=== PATIENT | male | born 1965 | race African-American/Black ===

== ENCOUNTER 2017-09-23 16:05 | Emergency (ER) | payer SELFPAY | END 2017-09-23 17:14 | disposition home or self-care (01) | LOC: ERS 16:05 | DX: K64.4 Residual hemorrhoidal skin tags (principal); I10 Essential (primary) hypertension; F17.210 Nicotine dependence, cigarettes, uncomplicated; Z79.899 Other long term (current) drug therapy | CPT/HCPCS: 99406 ==

== ENCOUNTER 2018-07-27 11:17 | Inpatient (IN) | payer SELFPAY ==
[2018-07-27 12:50] LABS: #Basophils 0.1 thou/uL (0.0-0.2); #Eosinphils 0.6 thou/uL (0.0-0.7); #Lymphocytes 4.1 thou/uL (1.20-3.40); #Monocytes 1.1 thou/uL (0.11-0.59); %Basophils 0.6 % (0.0-1.0); %Eosinophils 3.4 % (0.0-10.0); %Lymphocytes 24.1 % (21.0-51.0); %Monocytes 6.5 % (0.0-10.0); %Neutrophils 65.3 % (42.0-75.0); Hemoglobin 15.4 g/dL (14.0-18.0); Mean Corpuscular HGB CONC 33.8 g/dL (32.0-36.0); Mean Corpuscular Hemoglobin 29.9 pg (27.0-31.0); Mean Corpuscular Volume 88.5 fL (78.0-98.0); Mean Platelet Volume 6.2 fL (7.4-10.4); Platelet Count 336 thou/uL (130-400); RBC Distribution Width 12.8 % (11.5-14.5); Red Blood Cell (RBC) Count 5.15 mill/uL (4.70-6.10); White Blood Cell (WBC) Count 16.9 thou/uL (4.8-10.8)
[2018-07-27 13:16] LABS: ALT (SGPT) 19 U/L (8-55); AST (SGOT) 16 U/L (5-34); Albumin 4.4 g/dL (3.5-5.0); Alkaline Phosphatase 83 U/L (40-150); Anion Gap 11 mmol/L (10-20); BUN (Urea Nitrogen) 13 mg/dL (8.4-25.7); Bilirubin, Total 1.1 mg/dL (0.2-1.2); Calc. Creatinine Clearance 0 mL/min (70-130); Calcium 9.9 mg/dL (7.8-10.44); Carbon Dioxide 26 mmol/L (22-29); Chloride 104 mmol/L (98-107); Estimated GFR-MDRD Greater than 90; Globulin 3.5 g/dL (2.4-3.5); Glucose 90 mg/dL (70-105); Potassium 3.8 mmol/L (3.5-5.1); Protein, Total 7.9 g/dL (6.0-8.3); Sodium 137 mmol/L (136-145)
[2018-07-27] MEDS ORDERED: ISOVUE-370 76%-LOCM 1 ML ONE (13:33)
--- NOTE | 2018-07-27 14:08 | CT ---
CT BRAIN NONCONTRAST: DATE: 07/27/18 TIME: 1230 HOURS HISTORY: 52-year-old male with dysarthria and weakness for greater than 1 month. History of CVA 2 months ago. COMPARISON: 02/07/15. FINDINGS: There is a new finding of a small to moderate size patchy, ill-defined region of low attenuation in t he right cerebral deep white matter, beginning at the centrum semiovale lateral to the right caudate nucleus, and extending up to the right frontal suggs radiata. There is a smaller, more hypodense, irregularly shaped lesion in the right parietal centrum semiovale that extends superiorly to involve right upper lateral parietal cortex, consistent with an old infar ction. There are chronic ischemic white matter changes in the centrum semiovale bilaterally, new or greater than on the [address] CT. Ventricles are normal in size and configuration. No mass effect, midline shift, or extra-axial fluid collection. Calvarium is grossly intact. IMPRESSION: 1. No acute intracranial hemorrhage or mass effect. 2. Evidence for small old right parietal infarction involving cortex and mostly white matter. 3. A larger region of low attenuation in the right frontal deep cerebral white matter. This may be a n old or subacute infarction. Other etiologies are not excluded. 4. Unless there are contraindications to MRI, a MRI of the brain with and without contrast may be us eful. NELSON Ferguson POS: ZEYNEP
--- NOTE | 2018-07-27 15:38 | PDOC.FPRHP ---
- History of Present Illness Chief Complaint: Bilateral leg pain History of Present Illness: This is a 52 yo male who presents to the ED with a cc of upper leg pain. He states that the pain is made worse with walking and made better with rest. He states the pain has been going on for years. He states he lives at an apartment and has to take a break on the way to the mailbox. Pt. is currently taking HCTZ 12.5 daily and atorvastatin 40 mg daily. He also reports having a stroke 2 months ago with no work up. He reports his family said he didn't look right. He had some right facial numbness and left sided weakness. He reports these symptoms have not progressed. - Allergies/Adverse Reactions Allergies Allergy/AdvReac Type Severity Reaction Status Date / Time No Known Allergies Allergy Verified 07/27/18 17:18 - Home Medications Medication Instructions Recorded Confirmed Type Atorvastatin Calcium [Lipitor] 40 mg PO HS 07/27/18 07/27/18 History Hydrochlorothiazide [Microzide] 12.5 mg PO DAILY 07/27/18 07/27/18 History - History PMHx: HTN, PAD, Hx CVA, left ankle fracture in 2014 with residual decreased ankle mobility PSHx: Hernia surgery, bifemoral aortic bypass FHx: none contributory Social: 1 pack /3 days smoking for 20 years, denies alcohol, denies other drug use - Review of Systems General: reports: fever/chills, weight/appetite/sleep changes Eyes: reports: vision changes (Decreased vision in right eye for last 2 months after stroke). denies: eye pain ENT: denies: nasal congestion, rhinorrhea Respiratory: reports: cough. denies: congestion, shortness of breath Cardiovascular: denies: chest pain, palpitation, edema, paroxysmal nocturnal dyspnea Gastrointestinal: denies: nausea, vomiting, diarrhea, constipation, abdominal pain, GI bleeding Genitourinary: denies: incontinence, dysuria Skin: denies: rashes, lesions Musculoskeletal: denies: pain, tenderness Neurological: reports: numbness (occasional in hands) Psychological: denies: anxiety, depression - Vital signs BP: 174/74 HR: 77 RR: 16 Tmax: 98.2 Pox: 97% on RA Wt: 68.04 kg - Physical Exam Constitutional: NAD, awake, alert and oriented, well developed HEENT: normocephalic and atraumatic, EOMI -HEENT: Poor dentition, right eye does not constrict to light but does have consensual constriction Neck: supple, FROM, trachea midline, no JVD, no bruits Chest: no-tender to palpation Heart: RRR, normal S1/S2, no murmurs/rubs/gallops Lungs: CTAB, no respiratory distress, no wheezing Abdomen: soft, non-tender, bowel sounds present, no masses/distention Musculoskeletal: ROM grossly normal -Musculoskeletal: Decreased ROM in left ankle 2/2 fracture Neurological: CN II-XII intact -Neurological: 4/5 strength in left lower extremity, 5/5 in all other extremities. Skin: capillary refill <2 seconds, no jaundice Heme/Lymphatic: no unusual bruising or bleeding, no purpura Psychiatric: normal mood and affect, good judgment and insight FMR H&P: Results - Labs Result Diagrams: 07/27/18 12:43 07/28/18 05:35 Lab results: WBC 16.9 thou/uL (4.8-10.8) H 07/27/18 12:43 Hgb 15.4 g/dL (14.0-18.0) 07/27/18 12:43 Hct 45.6 % (42.0-52.0) 07/27/18 12:43 MCV 88.5 fL (78.0-98.0) 07/27/18 12:43 Plt Count 336 thou/uL (130-400) 07/27/18 12:43 Neutrophils % 65.3 % (42.0-75.0) 07/27/18 12:43 Sodium 137 mmol/L (136-145) 07/27/18 12:43 Potassium 3.8 mmol/L (3.5-5.1) 07/27/18 12:43 Chloride 104 mmol/L (98-107) 07/27/18 12:43 Carbon Dioxide 26 mmol/L (22-29) 07/27/18 12:43 BUN 13 mg/dL (8.4-25.7) 07/27/18 12:43 Creatinine 0.99 mg/dL (0.6-1.3) 07/27/18 12:43 Glucose 90 mg/dL (70-105) 07/27/18 12:43 Calcium 9.9 mg/dL (7.8-10.44) 07/27/18 12:43 Total Bilirubin 1.1 mg/dL (0.2-1.2) 07/27/18 12:43 AST 16 U/L (5-34) 07/27/18 12:43 ALT 19 U/L (8-55) 07/27/18 12:43 Alkaline Phosphatase 83 U/L (40-150) 07/27/18 12:43 Serum Total Protein 7.9 g/dL (6.0-8.3) 07/27/18 12:43 Albumin 4.4 g/dL (3.5-5.0) 07/27/18 12:43 FMR H&P: A/P - Problem List (1) HTN (hypertension) Current Visit: Yes Status: Acute Code(s): I10 - ESSENTIAL (PRIMARY) HYPERTENSION (2) Peripheral artery disease Current Visit: Yes Status: Acute Code(s): I73.9 - PERIPHERAL VASCULAR DISEASE, UNSPECIFIED (3) History of CVA (cerebrovascular accident) Current Visit: Yes Status: Acute Code(s): Z86.73 - PRSNL HX OF TIA (TIA), AND CEREB INFRC W/O RESID DEFICITS - Plan This is a 52 yo male with a PMH of HTN, Hx of CVA, and peripheral artery disease Peripheral artery disease -Pt. symptoms are likely 2/[address] Bowling performed his surgery in 2012 and we would defer to him with any CV surgery issues. We will otherwise work to optimize pt's medications. HTN -Elevated in the ED 197/96. With pt's history of stroke, we will not allow permissive HTN and will work to keep blood pressure below 180/100. Hx of CVA -Pt. is currently on a statin. We will add aspirin. Pt. is likely not having an acute stroke however due to pt's risk to poor follow up, we are performing US carotid doppler, MRI of brain, and medically managing pt's disease. Tobacco use disorder -We will provide nicotine patch while in hospital and encourage smoking cessation. Code: full Prophylaxis: lovenox Family: none at bedside Disposition: home in 1-2 days FMR H&P: Upper Level - Pertinent history 52 yo M who presents with a cc of upper leg pain. He states that the pain is made worse with walking and made better with rest. He states the pain has been going on for years but has recently become more debilitating and he was tired of dealing with it. Upon further discussion, he reports having a stroke approximately 1-2 months ago that was clinically diagnosed outpatient. He has residual weakness and feels weaker on the L side. He has also noted worsening vision changes over the last 2 days which he describes as intermittent vision loss. His vision comes and goes, he has trouble opening his R eye which is worst in the morning. - Pertinent findings Labs and VS as above Gen: awake, alert, oriented HEENT: EOMI, conjunctiva noninjected, slight droop of R eyelid, decreased trigeminal sensation CV: RRR, no murmur noted, pulses 2+ in BUE and BLE, no carotid bruits on auscultation RESP: CTAB ABD: soft, nontender, nondistended EXT: strength 4/5 upper and lower 4/5 NEURO: CN intact apart from slight droop of R eyelid, decreased sensation of R face, intermittent loss of lateral half of R eye field of vision, strength 5/5 R side, 4/5 left upper and lower extremity, - Plan Date/Time: 07/27/18 1528 A/P: 52 yo male with a PMHx of HTN, CVA, and peripheral artery disease 1. Stroke - Clinical deficits with new R sided visual deficits which started 2 days ago - CT with e/o subacute stroke in R parietal and cortex - Monitor on tele - MRI and carotid dopplers - Sx > 2 days, chronic > 2 months, not candidate for TPA - Will start ASA, continue statin and BP control 2. Symptomatic PAD - Pt. symptoms are likely 2/2 to worsening - Will try to optimize medically 3. Hypertensive urgency - cHTN - No new stroke-like symptoms in last 24 hours, will slowly try to titrate BP meds - Current symptoms > 2 days 4. Tobacco abuse - Nicotine patch -Counselled cessation Code Status: Full PPX: Renate Long, Ignacia Wills MD, PGY-3 have evaluated this patient and agree with findings/ plan as outlined by internal combustion engine subassembler resident. Pertinent changes/additions are listed here. Attending Addendum - Attending Addendum Date/Time: 07/28/18 0709. Please note seen on 07/27. I personally evaluated the patient and discussed the management with Dr. Wills and Cristel. I agree with and repeated the History, Examination, Assessment and Plan documented above with any addition or exceptions noted below. Patient with stable claudication came in d/t concern about his previous stroke and was found to have BP > 200 systolic. He says he has reproducible claudication but is able to get around during the day. He takes his medications as prescribed. No cp/sob or new neurologic deficits. He says he has had left sided weekness for about 2 months. No dysphagia or dysarthria. Pertinent exam with pressures as above, LUE/LLE 4+/5, SILT. RRR s M, CTAB s wheeze Plan for 25% reduction over hours of BP and subsequent optimization over days. Workup of stroke, with possible subacute infarct on CT brain, while inpatient. Medical optimization of PVD and CAD risk factors. He has 2+ DP's bilateraly and 2+ PT on right. No wound, but does have chronic changes. He will need follow up with CV Sx, but will of course call if something acutely develops in the hospital.
[2018-07-27 16:12] LABS: CKMB 1.7 ng/mL (0-6.6); Troponin I Less than 0.010 ng/mL (< 0.028)
[2018-07-27] MEDS ORDERED: Ondansetron ODT 4 MG TAB PO PRN (17:03)
[2018-07-27] MEDS ORDERED: Ondansetron HCl/PF 4 MG/2 ML Vial IVP PRN (17:03)
[2018-07-27] MEDS ORDERED: Acetaminophen 325 MG TAB PO PRN (17:03)
[2018-07-27] MEDS ORDERED: Labetalol HCl 100 MG/20 ML VIAL SLOW IVP PRN (17:03)
[2018-07-27] MEDS: Nicotine 14 MG PATCH TD SCH (18:02)
[2018-07-27 18:21] VITALS: BMI 21.7
[2018-07-27] MEDS: Hydrochlorothiazide 25 MG TAB PO SCH (21:42)
[2018-07-27] MEDS: Famotidine 20 MG TAB PO SCH (21:43)
[2018-07-28 05:59] LABS: ALT (SGPT) 20 U/L (8-55); AST (SGOT) 17 U/L (5-34); Albumin 4.2 g/dL (3.5-5.0); Alkaline Phosphatase 79 U/L (40-150); Anion Gap 13 mmol/L (10-20); BUN (Urea Nitrogen) 13 mg/dL (8.4-25.7); Calc. Creatinine Clearance 87 mL/min (70-130); Calcium 9.9 mg/dL (7.8-10.44); Carbon Dioxide 24 mmol/L (22-29); Cardiac Risk 4.6 (Less than 4.5); Chloride 104 mmol/L (98-107); Cholesterol 144 mg/dl (< 200 Desired); Estimated GFR-MDRD Greater than 90; Globulin 3.4 g/dL (2.4-3.5); Glucose 98 mg/dL (70-105); HDL Cholesterol 31 mg/dL (>60 Neg Risk); LDL Cholesterol, Calculated 98 mg/dL; Protein, Total 7.6 g/dL (6.0-8.3); Sodium 137 mmol/L (136-145); Triglycerides 75 mg/dL (Less than 150)
--- NOTE | 2018-07-28 06:07 | PDOC.FM ---
- Subjective Subjective: Pt reports feeling well this AM. No new neurological symptoms. No complaints at this time no fevers/chills, no cp/palpitations, no sob/cough, continued leg pain - Objective MAR Reviewed: Yes Vital Signs & Weight: Vital Signs (12 hours) Temp Pulse Resp BP Pulse Ox 07/28/18 06:00 105/62 07/28/18 04:00 97.5 F L 70 18 98 07/28/18 00:00 98.6 F 80 18 97 07/27/18 20:00 98.6 F 80 18 97 07/27/18 19:54 98.5 F 86 19 98 Weight Weight 61.235 kg I&O: 07/26/18 07/27/18 07/28/18 06:59 06:59 06:59 Intake Total 500 Balance 500 Result Diagrams: 07/28/18 05:34 07/28/18 05:35 Phys Exam - Physical Examination Constitutional: NAD HEENT: moist MMs, sclera anicteric Neck: supple, full ROM Respiratory: no wheezing, clear to auscultation bilateral Cardiovascular: RRR, no significant murmur Gastrointestinal: soft, non-tender Musculoskeletal: no edema, pulses present Decreased ROM of R hip rotation due to pain Neurological: moves all 4 limbs R pupil dilation compared to L. 4mm on R, 3mm on L Psychiatric: normal affect, A&O x 3 Skin: no rash, normal turgor Dx/Plan (1) HTN (hypertension) Code(s): I10 - ESSENTIAL (PRIMARY) HYPERTENSION Status: Acute (2) History of CVA (cerebrovascular accident) Code(s): Z86.73 - PRSNL HX OF TIA (TIA), AND CEREB INFRC W/O RESID DEFICITS Status: Acute (3) Peripheral artery disease Code(s): I73.9 - PERIPHERAL VASCULAR DISEASE, UNSPECIFIED Status: Acute - Plan Plan: 52 yo male with a PMHx of HTN, CVA, and peripheral artery disease Hypertensive urgency A- SBP on presentation was in 202/117, pt has chronic HTN. have been titrating up HCTZ (now at 12.5 BID) but pt BP this AM was 105/62. Orthostatics were negative and reviealed normalized BP at 136/92 P- HCTZ -monitor vitals Stroke A- Clinical deficits with new R sided visual deficits which started [address] with evidence of subacute stroke in R parietal and cortex P- MRI w/wo contrast per radiology recs - await carotid dopplers read - ASA, statin, and BP control - potentially send home today Symptomatic PAD A- Pt. symptoms are likely 2/2 to worsening PAD vs musculoskeletal etiology P- Will try to optimize medically Tobacco abuse - Nicotine patch -Counselled cessation Code Status: Full PPX: Lovenox
--- NOTE | 2018-07-28 07:22 | ULT ---
CAROTID ARTERIAL DOPPLER ULTRASOUND: DATE: 07/27/18. COMPARISON: None. HISTORY: Recent stroke. Evaluate for carotid artery disease. TECHNIQUE: Multiplanar, márquez scale sonographic imaging of the arterial structures of the neck obtained with colo r flow and spectral analysis. FINDINGS: There is circumferential mild soft plaque within the right CCA diffusely. There is prominent eccentric soft plaque within the right distal CCA. The right carotid system is oc cluded either at the distal-most aspect of the left CCA or the origin of the left ICA. Right ECA is patent. The left CCA and ECA are patent. The left ICA is occluded at its origin. VESSEL PSV(CM/S) EDV(CM/S) Right CCA 65 5 Right ICA occluded Right ECA 93 41 Left CCA 120 14 Left ICA 29 2 (occluded just beyond the origin) Left ECA 129 33 IMPRESSION: Bilateral internal carotid artery occlusion. Recommend CT angiogram for full assessment of the arter ial blood flow within the head and neck. POS: SULEIMAN
[2018-07-28] MEDS: Enoxaparin Sodium 40 MG/0.4 ML SYRINGE SC SCH (07:59)
[2018-07-28] MEDS: Hydrochlorothiazide 25 MG TAB PO SCH ×2 (08:00→22:36)
[2018-07-28] MEDS: Famotidine 20 MG TAB PO SCH ×2 (08:00→22:36)
[2018-07-28] MEDS ORDERED: Aspirin 81 mg Enteric Coated Tablet PO SCH (09:00)
[2018-07-28 11:17] LABS: #Basophils 0.1 thou/uL (0.0-0.2); #Eosinphils 0.8 thou/uL (0.0-0.7); #Lymphocytes 4.7 thou/uL (1.20-3.40); #Monocytes 0.9 thou/uL (0.11-0.59); #Neutrophils 6.2 thou/uL (1.40-6.50); %Basophils 0.5 % (0.0-1.0); %Eosinophils 6.4 % (0.0-10.0); %Monocytes 7.4 % (0.0-10.0); %Neutrophils 48.8 % (42.0-75.0); Hemoglobin 16.1 g/dL (14.0-18.0); Mean Corpuscular HGB CONC 32.9 g/dL (32.0-36.0); Mean Corpuscular Hemoglobin 29.4 pg (27.0-31.0); Mean Corpuscular Volume 89.4 fL (78.0-98.0); Mean Platelet Volume 6.7 fL (7.4-10.4); Platelet Count 333 thou/uL (130-400); RBC Distribution Width 12.9 % (11.5-14.5); Red Blood Cell (RBC) Count 5.48 mill/uL (4.70-6.10); White Blood Cell (WBC) Count 12.6 thou/uL (4.8-10.8)
--- NOTE | 2018-07-28 12:28 | MRI ---
MRI BRAIN WITH AND WITHOUT CONTRAST: HISTORY: Question subacute stroke. COMPARISON: CT brain 07/27/2018. CT brain 02/07/2015. FINDINGS: There is an old right posterior MCA territory parietal infarction . There are moderate vascular isch emic changes. There is an old right basal ganglia infarction. In the watershed zone right frontal subcortical white matter are 2 punctate foci of diffusion restric tion. There is subtle vertebroform diffusion restriction of the right middle frontal gyrus with spec kled enhancement. There is also a focal area of enhancement of the right suggs radiata on post cont rast image 19 also with diffusion restriction measuring approximately 3 mm. No other focal areas of abnormal enhancement. No significant vasogenic edema. On the susceptibility weighted imaging sequence, there are no abnormal areas of hemorrhage. The cerv ical flow voids are patent. IMPRESSION: Likely late acute, early subacute watershed infarctions of the right middle frontal gyrus as well as of the subcortical deep suggs radiata, although there is some enhancement, stickled, without signifi cant vasogenic edema. This may be sequelae of the subacute infarction, although a followup MRI with and without contrast in 1 month is recommended to evaluate for changes. Enhancement should dissipate within 1 month. If enhancement persists, this would be a concern for early metastatic disease. POS: SULEIMAN
[2018-07-28 13:30] LABS: Amphetamine Not Detected (NotDetected); Barbiturates Screen Not Detected (NotDetected); Benzodiazepine Screen Not Detected (NotDetected); Cocaine Metabolite Screen Not Detected (NotDetected); Medtox Control Line Valid? VALID (VALID); Medtox Reader # READER 4; Methadone Not Detected (NotDetected); Methamphetamine Not Detected (NotDetected); Opiate Screen Not Detected (NotDetected); Oxycodone Screen Not Detected (NotDetected); Phencyclidine (PCP) Not Detected (NotDetected); THC/Cannabinoid Screen Detected (NotDetected); Tricyclic Screen Not Detected (NotDetected)
[2018-07-28] MEDS ORDERED: Gadobenate Dimeglumine 529 MG/1 ML (20ML VIAL) ONE (13:36)
--- NOTE | 2018-07-28 13:38 | CT ---
CT ARTERIOGRAM NECK WITH IV CONTRAST AND 3D MIP IMAGING CT ARTERIOGRAM HEAD WITH IV CONTRAST AND 3D MIP IMAGING CT BRAIN WITH AND WITHOUT IV CONTRAST: HISTORY: CVA. COMPARISON: 07/27/2018. FINDINGS: There is no evidence of acute intracranial hemorrhage. Ill-defined areas of decreased density within the right frontal lobe are consistent with areas of old and recent infarct. No abnormal areas of in tracranial enhancement are apparent. Emphysematous changes are apparent at the lung apices. Normal branching of the great vessels and the aortic arch with minimal atherosclerosis. Good flow into each carotid and vertebral system. Vertebrobasilar system is patent. Complete occlusion at the right carotid bifurcation. One branch, favored to be the superior thyroid artery, is patent. The right internal carotid artery is occluded to the level of the [place] s. There is reconstitution of the right external carotid artery after a short segment of obstruction . The left internal carotid artery is occluded at its origin. Good flow into the left external carotid system. The [place] is intact and partially fed by external carotid collaterals. No evidence of ane urysm. IMPRESSION: Complete occlusion of each internal carotid artery. Short-segment occlusion of the right external ca rotid artery. Patent [place] and external carotid collaterals supply the cerebral arterial system. POS: FRED
[2018-07-28] MEDS: Nicotine 14 MG PATCH TD SCH (16:18)
--- NOTE | 2018-07-28 18:53 | PDOC.EVN ---
Event Note - Event Note Event Note: MRI showed stroke and complete BL internal carotid occlusion. Patient needs evaluation by neurology and possible further eval by CV surg. Awaiting neurology recommendations. Unsafe for discharge today so will transition to inpatient.
--- NOTE | 2018-07-28 21:30 | CON ---
DATE OF CONSULTATION: 07/28/2018 CHIEF COMPLAINT: Difficulty with walking and left-sided weakness. HISTORY OF PRESENT ILLNESS: The patient is a 52-year-old male -[place] gentleman with prior history of stroke with right-sided numbness. He reports to me he has had some weakness on the left hand side as well and he has been finding it difficult to walk since a few weeks and this past week he has had more left leg weakness. He has a history of left ankle surgery in the past as well. He is currently taking hydrochlorothiazide 12.5 mg once daily and atorvastatin 40 mg per day and he states he had a stroke 2 months ago with residual numbness on the right side and also left-sided weakness which has been persistent. PREVIOUS MEDICAL HISTORY: He does have hypertension, peripheral vascular disease, prior history of stroke. SURGICAL HISTORY: Left ankle fracture 2015 with surgery, hernia repair and bilateral femoral artery aortic bypass. FAMILY HISTORY: Negative for stroke, but both his sisters have hypertension and clogged arteries per patient. SOCIAL HISTORY: He lives with his . He reports that his son is causing some stress in their lives and his is a chronic smoker and patient is unable to quit smoking because she is smoking and he is now reduced to 1 pack per 2 days. Does not drink alcohol. Does not use any drugs. REVIEW OF SYSTEMS: PULMONARY: Negative for cough or shortness of breath. CARDIOVASCULAR: No history of palpitation or chest pain. GASTROINTESTINAL: No history of vomiting or any other symptoms such as abdominal pain or constipation. GENITOURINARY: No bladder problems. Positive for peripheral vascular disease. NEUROLOGIC: Positive for numbness on the right side and weakness on the left side. DERMATOLOGIC: Negative for any rash. PSYCHIATRIC: Negative for any depression or anxiety. LABORATORY DATA AND IMAGING DATA: Current laboratory workup, his white count is 12.6, hemoglobin 16.1, hematocrit 49, platelets are 333. Sodium 137, potassium 4, bicarbonate is 24, chloride 104, BUN 13, creatinine 0.87, AST 17, ALT 20, alkaline phosphatase 79, LDL 98, HDL 31, heart disease risk ratio 4.6. Cholesterol 144, triglycerides are 75. Urine tox screen is positive for cannabinoids. His CT scan of the brain performed yesterday shows no acute infarct, evidence for small old right parietal infarct involving the cortex and mostly white matter CT and carotid Doppler study shows bilateral internal carotid artery occlusion and CT angiogram was requested. His MRI of the brain shows likely late acute or early subacute watershed infarctions of the right middle frontal gyrus as well as subcortical deep suggs radiata. There is some enhancement without vasogenic edema. This may be sequelae of subacute infarction and enhancement should dissipate within 1 month and this would be a concern for metastatic disease if enhancement persists and CT angiography shows no evidence of acute intracerebral hemorrhage, ill-defined areas of density, decreased density in the right frontal lobe are consistent with areas of old and recent infarct, complete occlusion of the right carotid bifurcation, one branch fever to be superior thyroid arteries patent, right ICA is occluded to the level of [place]. There is reconstitution of the right external carotid artery after short segment of obstruction. Left internal carotid artery is occluded at its origin. [place] of [place] is intact and partially fed by external carotid collaterals. 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 PHYSICAL EXAMINATION: VITAL SIGNS: Temperature 97.8, pulse is 90, respiratory rate is 20, and blood pressure 150/90. GENERAL APPEARANCE: Thin built well-nourished gentleman who is pleasant. He has some skin dryness of his skin in both his legs. CHEST: Clear vesicular breathing. CARDIOVASCULAR: S1, S2 heard, no murmurs. ABDOMEN: Soft, nontender, no organomegaly noted. NEUROLOGICAL: Higher intellectual functions, normal orientation to time, place and person and appropriate conversation. Cranial nerves II-XII are normal. Extraocular movements are normal. Pupillary reaction bilaterally is normal and pupils size is 1.5 mm and normal sensation of face bilaterally. Tongue midline , no atrophy noted. No facial asymmetry is noted and motor examination, bulk is normal. He had mild weakness of the left iliopsoas at 4/5, left ankle dorsiflexion was also 4/5. Tone is normal, strength 5/5 throughout in upper and lower extremities in iliopsoas, hamstrings, quadriceps, ankle dorsiflexion and plantarflexion bilaterally. Deep tendon reflexes are 2+ in upper and lower extremities in biceps, triceps, brachioradialis, knee jerks and ankle jerks bilaterally. Sensory: Normal touch, pinprick, proprioception, vibration, and temperature bilaterally. CEREBELLAR: Normal to plmpna-ad-tiri and heel-to- salazar. Gait not tested. IMPRESSION: Patient is a 52-year-old man with history of stroke 2 months ago. He has not been on aspirin on a regular basis. He tells me he has been taking ibuprofen as needed at home. He is a chronic smoker, unable to quit since his also smokes. He has history of chronic hypertension and he has had history of right-sided numbness persisting from his previous stroke 2 months ago and has developed some weakness in his leg. On examination, he has intact sensation. Normal cranial nerves but mild weakness in the left lower extremity , nearly iliopsoas and ankle dorsiflexion. I reviewed his reports and he has bilateral carotid artery disease with complete occlusion of the right and some occlusion of the left with preserved collaterals from external carotid artery. He has history of peripheral vascular disease in his legs in the past. At this time medically, he needs to be on antiplatelet agent, particularly aspirin 325 mg once daily along with statin. Please consult vascular surgery for formal angiogram. RECOMMENDATIONS: 1. Please start patient on aspirin 325 mg once daily. 2. Please perform an echocardiogram to evaluate for any right to left shunt and any other cardiac issues. 3. Please consult vascular surgery for the vasoocclusive disease and he will probably need a formal angiogram to determine the extent of collaterals. So he does not compromise his cerebral vasculature in the future. 4. Monitor for any changes in his neurological status. This seems to be a late acute to subacute infarct based on imaging studies at this time and he is reporting an event at least 1 week in duration with left leg weakness. I will follow up the patient with you carefully and please monitor him for other risk factors, modulation such as hypertension. Please call me if you have any further questions. IRVIN
[2018-07-28] MEDS: Atorvastatin Calcium 40 MG TAB PO SCH (22:36)
--- NOTE | 2018-07-29 05:59 | PDOC.FM ---
- Subjective Subjective: Pt reports feeling well and optimistic this AM, no changes in vision. No complaints at this time. no fevers/chills, no n/v, no cp/palpitations, no sob/cough - Objective MAR Reviewed: Yes Vital Signs & Weight: Vital Signs (12 hours) Temp Pulse Resp BP BP Pulse Ox 07/29/18 04:00 98.5 F 97 16 140/71 96 07/29/18 03:10 95 07/29/18 00:00 99.7 F H 105 H 16 114/57 L 95 07/28/18 21:00 98 07/28/18 20:00 98.0 F 97 16 150/85 H 98 Weight Weight 61.235 kg I&O: 07/27/18 07/28/18 07/29/18 06:59 06:59 06:59 Intake Total 1000 900 Balance 1000 900 Result Diagrams: 07/29/18 06:40 07/28/18 05:35 Phys Exam - Physical Examination Constitutional: NAD HEENT: moist MMs, sclera anicteric R pupil remains to be dilated 1mm more than L, both reactive to light Neck: supple, full ROM Respiratory: no wheezing, clear to auscultation bilateral Cardiovascular: RRR, no significant murmur Gastrointestinal: soft, non-tender Musculoskeletal: no edema Neurological: normal sensation, moves all 4 limbs Psychiatric: normal affect, A&O x 3 Skin: no rash, normal turgor Dx/Plan (1) HTN (hypertension) Code(s): I10 - ESSENTIAL (PRIMARY) HYPERTENSION Status: Acute (2) History of CVA (cerebrovascular accident) Code(s): Z86.73 - PRSNL HX OF TIA (TIA), AND CEREB INFRC W/O RESID DEFICITS Status: Acute (3) Peripheral artery disease Code(s): I73.9 - PERIPHERAL VASCULAR DISEASE, UNSPECIFIED Status: Acute - Plan Plan: 52 yo male with a PMHx of HTN, CVA, and peripheral artery disease Stroke A- Clinical deficits with new R sided visual deficits which started 3 days ago. CTA head/neck shows complete Bilat occlusion of ICAs, patent external carotids. MRI shows subacute infact in R mid-frontal gyrus. Neuro recs - ASA 325, vascular surgery consult P- will consult vascular surg - ASA, statin, and BP control Hypertensive urgency A- SBP on presentation was in 202/117, pt has chronic HTN. have been titrating up HCTZ (now at 12.5 BID). BP stabilized at 140/71 this AM P- HCTZ -monitor vitals Stroke A- Clinical deficits with new R sided visual deficits which started [address] with evidence of subacute stroke in R parietal and cortex. MRI shows subacute infact in R mid-frontal gyrus. Neuro recs - ASA 325, vascular surgery consult P- Neurology consulted - ASA, statin, and BP control Symptomatic PAD A- Pt. symptoms are likely 2/2 to worsening PAD vs musculoskeletal etiology P- Will try to optimize medically Tobacco abuse - Nicotine patch -Counselled cessation Code Status: Full PPX: Lovenox
[2018-07-29 07:22] LABS: White Blood Cell (WBC) Count 19.1 thou/uL (4.8-10.8)
[2018-07-29] MEDS: Famotidine 20 MG TAB PO SCH ×2 (08:33→20:19)
[2018-07-29] MEDS: Enoxaparin Sodium 40 MG/0.4 ML SYRINGE SC SCH (08:33)
[2018-07-29] MEDS: Hydrochlorothiazide 25 MG TAB PO SCH ×2 (08:33→20:19)
[2018-07-29] MEDS: Aspirin 325 mg Enteric Coated Tablet PO SCH (08:33)
--- NOTE | 2018-07-29 13:07 | PRG ---
DATE OF SERVICE: 07/29/2018 CHIEF COMPLAINT: Acute stroke. INTERVAL HISTORY: The patient reports he is stable and doing well. He has also been trying to walk. At this time, he has some improvement in the left leg weakness. INTERVAL RESULTS: Laboratory workup, white count 19.1 and his imaging results were reviewed by me ye sotero. Echocardiogram is pending. PHYSICAL EXAMINATION: VITAL SIGNS: Blood pressure 141/80, temperature 98.5, pulse 97, respiratory rate 16, O2 sats 97. GENERAL APPEARANCE: Thin, well-nourished man. CHEST: Clear vesicular breathing. CARDIOVASCULAR: Normal. NEUROLOGIC: Higher intellectual functions are normal. Normal extraocular movements. No facial asym metry. Motor, bulk normal, tone normal, strength 5/5 in upper and lower extremities. IMPRESSION: The patient is a 52-year-old man with bilateral carotid occlusion as noted in the CT ang iogram. His MRI showed late acute or early subacute infarcts in the right middle frontal gyrus and s ubcortical deep suggs radiata. He is currently waiting for Vascular Surgery consultation. RECOMMENDATIONS: 1. Plan for Vascular Surgery consultation to evaluate whether or not he needs carotid surgery. 2. Continue aspirin for stroke prophylaxis. Please call Neurology if you have any further questions .
--- NOTE | 2018-07-29 13:18 | CON ---
DATE OF CONSULTATION: 07/29/2018 HISTORY OF PRESENT ILLNESS: Mr. High is a 52-year-old gentleman who presented through the emerge ncy department. He has a history of peripheral vascular disease, status post aortobifemoral bypass i n 2012. He presented to the emergency department with complaint of upper leg pain. He said the pain has been going on for years. He also had a complaint of some right facial numbness and left-sided w eakness. As part of his workup, he had a CT angiogram of his neck performed which shows bilateral in ternal carotid artery occlusion. I have been asked to see him to discuss this further with patient. Unfortunately, the patient is outside smoking and is unavailable for interview or examination. The r emainder of this dictation has been gleaned from the chart. PAST MEDICAL HISTORY: 1. Hypertension. 2. Peripheral vascular disease. 3. History of cerebrovascular accident. 4. Left ankle fracture in 2014. PAST SURGICAL HISTORY: 1. Hernia repair. 2. Aortobifemoral bypass. SOCIAL HISTORY: He continues to smoke, does not use alcohol or other drugs. REVIEW OF SYSTEMS: Reviewed from his H and P. CURRENT VITAL SIGNS: Temperature is 98.3, pulse is 100 and regular, blood pressure is 142/75. PHYSICAL EXAMINATION: Not performed. IMAGING: I have reviewed the CT angiogram which shows bilateral occluded internal carotid arteries. ASSESSMENT AND PLAN: Bilateral occlusive cerebrovascular disease. There is no current standard ther apy for this problem.
[2018-07-29] MEDS: Nicotine 14 MG PATCH TD SCH (17:56)
[2018-07-29] MEDS: Atorvastatin Calcium 40 MG TAB PO SCH (20:19)
--- NOTE | 2018-07-30 06:57 | PDOC.FM ---
- Subjective Subjective: Pt states he is doing well this Am and ready to leave. Denies visual problems or focal weakness/ neuro deficits. ambulating and Asking about how to take his medication, which I explained to him again. - Objective Vital Signs & Weight: Vital Signs (12 hours) Temp Pulse Resp BP Pulse Ox 07/30/18 04:17 98 07/30/18 04:00 97.4 F L 90 18 125/78 99 07/30/18 00:00 98.1 F 86 18 125/70 97 07/29/18 20:00 97.6 F 91 20 137/75 96 Weight Weight 61.235 kg I&O: 07/28/18 07/29/18 07/30/18 06:59 06:59 06:59 Intake Total 1000 900 360 Output Total 225 Balance 1000 900 135 Result Diagrams: 07/29/18 06:40 07/28/18 05:35 <Rock Stevens - Last Filed: 07/30/18 08:07> - Objective Vital Signs & Weight: Vital Signs (12 hours) Temp Pulse Resp BP Pulse Ox 07/30/18 08:07 97 07/30/18 07:36 97.6 F 86 16 154/93 H 97 07/30/18 04:17 98 07/30/18 04:00 97.4 F L 90 18 125/78 99 Weight Weight 61.235 kg I&O: 07/29/18 07/30/18 07/31/18 06:59 06:59 06:59 Intake Total 900 360 Output Total 225 Balance 900 135 Result Diagrams: 07/29/18 06:40 07/28/18 05:35 <Renita Rain - Last Filed: 07/30/18 13:54> Phys Exam - Physical Examination Constitutional: NAD HEENT: PERRLA, moist MMs Neck: no nodes, no JVD, supple Respiratory: no wheezing, no rales, no rhonchi Cardiovascular: RRR, no significant murmur Gastrointestinal: soft, non-tender, no distention Musculoskeletal: no edema, pulses present Neurological: non-focal, normal sensation Psychiatric: normal affect, A&O x 3 Skin: no rash, normal turgor <Rock Stevens - Last Filed: 07/30/18 08:07> Dx/Plan - Plan Plan: Plan: 52 yo male with a PMHx of HTN, CVA, and peripheral artery disease Stroke CTA head/neck shows complete Bilat occlusion of ICAs, patent external carotids. MRI shows subacute infarct in R mid-frontal gyrus. Neuro recs - ASA 325, vascular surgery consult reveals no intervention applicable. - Continue ASA, statin, and BP control Hypertensive urgency Currently controlled on HCTZ, will need close f/u to monitor BP. Also advised to keep a log at home. -monitor vitals Symptomatic PAD A- Pt. symptoms are likely 2/2 to worsening PAD vs msk etiology P- Will try to optimize medically and advised to stop smoking Tobacco abuse - Nicotine patch -Counselled cessation DVT ppx: Lovenox <Rock Stevens - Last Filed: 07/30/18 08:07> Attending Addendum - Attending Addendum Date/Time: 07/30/18 [id number] I personally evaluated the patient and discussed the management with Dr. Stevens I agree with the History, Examination, Assessment and Plan documented above with any addition or exceptions noted below- Patient without complaints. Denies any MUNIZ, weakness. Ready to go home. Afebrile VSS. A/P: 1) Subacute CVA- continue ASA, statin. 2) B/L internal carotid occlusion- appreciate CV surgery input. No surgical intervention needed. Continue risk modification. D/C home today. <Renita Rain - Last Filed: 07/30/18 13:54>
[2018-07-30 07:36] VITALS: BP 154/93; TEMP 97.6
[2018-07-30] MEDS: Enoxaparin Sodium 40 MG/0.4 ML SYRINGE SC SCH (09:47)
[2018-07-30] MEDS: Hydrochlorothiazide 25 MG TAB PO SCH (09:47)
[2018-07-30] MEDS: Famotidine 20 MG TAB PO SCH (09:47)
[2018-07-30] MEDS: Aspirin 325 mg Enteric Coated Tablet PO SCH (09:47)
--- NOTE | 2018-07-30 14:53 | ADD-PRG ---
ADDENDUM Please see the note from Dr. Barajas for which I agree. SUBJECTIVE: The patient was seen and evaluated, examined and discussed with the residents by bedside . The patient initially came in with hypertensive urgency, but then now his blood pressures dropped really incredibly, which is a low dose hydrochlorothiazide. He has pain in his legs, but really it s ounds more like degenerative joint disease or some back disease and not a classic claudication. He h as a history of aortofemoral bypass and has great peripheral pulses today, but has extremely limited range of motion of the left hip, internal and external rotation and extending that leg and gave him a lot of pain as well. It musculoskeletal. It does sound like he may have stroke symptoms a c ouple of months ago and maybe the right pupil is a little bit slow currently. He did not really have much other symptoms or complaints right now and it sounds like the plan at this point in time is to get carotid Dopplers to see if there is anything reversible and make sure he is compliant on his aspi rin, which he was and send him out on a statin and possibly low dose blood pressure. With the extrem palomo erratic blood pressure, definitely want to get a urine drug screen to see if that potentially was a player in the initial hypertension.
--- NOTE | 2018-07-30 15:03 | ADD-PRG ---
ADDENDUM DATE OF SERVICE: 07/29/[address] Oj Barajas's note, for which I agree. The patient is currently being evaluated fo r bilateral carotid blockage internal carotids, but we talked to Dr. Philip and sounds like he thinks nothing can be done just continue the blood thinners and anticoagulants and antilipid agents as he escamilla s some collateral keeping his brain will follow up in the near future, but urged complian yo.
--- NOTE | 2018-07-31 00:08 | DIS-2 ---
DATE OF ADMISSION: 07/27/2018 DATE OF DISCHARGE: 07/30/2018 RESIDENT: Oj Barajas. ADMITTING ATTENDING: Nick Stroud M.D. DISCHARGE ATTENDING: Renita Rain M.D. CONSULTATIONS: Nathanael, Neurology on 07/28/2018; Cedrick, Cardiovascular Surgery on 07/29/2018. PROCEDURES: 1. On 07/27/2018, brain CT. Impression: No acute intracranial hemorrhage or mass effect, evidence for small old right parietal infarction involving cortex mostly white matter, a larger region of the low attenuation in the right frontal deep core cerebral white matter. This may be an old or subacute infarction. Other etiologies are not excluded unless there are contraindications to an MRI and MRI of the brain with and without contrast may be useful. 2. On 07/27/2018, carotid Doppler study. Impression: Bilateral internal carotid artery occlusion, recommend CT angiogram for full assessment of the arterial blood flow within the head and neck. 3. On 07/28/2018, brain MRI. Impression: Likely late early subacute watershed infarctions of the r ight middle frontal gyrus as well as the subcortical deep suggs radiata, although there is some enha ncement stickled without significant vasogenic edema. This may be sequela of the subacute infarction , although a followup MRI with and without contrast in 1 month is recommended to evaluate for changes enhancement should dissipate within 1 month. If enhancement persists, this would be concern for ear ly metastatic disease. 4. On 07/28/2018, CT angiography. Impression: Complete occlusion of each internal carotid artery, short segment occlusion of the right external carotid artery. Patent [place] and external c arotid collateral supply the cerebral artery arterial system. PRIMARY DIAGNOSES: Subacute ischemic stroke and bilateral internal carotid artery occlusion. SECONDARY DIAGNOSES: Hypertensive urgency, symptomatic peripheral artery disease, and tobacco abuse. DISCHARGE MEDICATIONS: 1. Hydrochlorothiazide 12.5 mg p.o. b.i.d. 2. Atorvastatin calcium 40 mg p.o. at bedtime. 3. Aspirin 325 mg p.o. daily. DISCONTINUED MEDICATIONS: Hydrochlorothiazide 12.5 mg p.o. daily. HISTORY OF PRESENT ILLNESS AND HOSPITAL COURSE: This is a 52-year-old male with medical history of p eripheral artery disease and femoral arterial bypass graft surgery done in 2012, who presented for hi story of bilateral hip pain. Patient was then found to have recent stroke-like symptoms including ri ght visual deficits and received imaging of his brain and was found to have possible acute versus sub acute versus old infarction. Neurology was consulted and patient also received Doppler studies of ca rotids which led to CT angiograms of the head and neck which showed bilateral complete occlusions of internal carotid arteries with partial occlusion of right external carotid artery. Neurology recomme nded consulting Cardiovascular Surgery who was then consulted and starting the patient on 325 mg of a spirin as well as controlling risk factors such as hyperlipidemia and hypertension. The patient was seen by Cardiovascular Surgery and deemed that no management was indicated for his condition includin g his lower extremity pain due to peripheral artery disease other than reducing risk factors. Sima francisco was deemed safe for discharge and sent home. Hospital stay was further complicated by hypertension and patient was titrated up on hydrochlorothiazide and eventually sent home on 12.5 mg p.o. b.i.d. Per recommendations by Radiology, patient was also advised to follow up with primary care provider eleno byrnes brain MRI. Follow up in 1 month for evaluation of possible cancer. DISPOSITION: Stable. DISCHARGE INSTRUCTIONS: 1. Location: Home. 2. Diet, healthy heart. 3. Activity: As tolerated. 4. Follow up with [facility] in 7 days and with Lalo Philip Cardiovascular Surgery in 2-3 weeks.
== END 2018-07-30 10:21 | disposition home or self-care (01) | DRG 65 ==
LOC: ERS 11:17 → OBSVTOIN 16:55 → 2SE 16:55
PROVIDERS: ADMIT Family Medicine; ATTEND Family Medicine
DX: I63.233 Cerebral infarction due to unspecified occlusion or stenosis of bilateral carotid arteries (principal); G81.94 Hemiplegia, unspecified affecting left nondominant side; I16.0 Hypertensive urgency; I10 Essential (primary) hypertension; H53.8 Other visual disturbances; I70.209 Unspecified atherosclerosis of native arteries of extremities, unspecified extremity; R29.702 NIHSS score 2; I70.293 Other atherosclerosis of native arteries of extremities, bilateral legs; M25.552 Pain in left hip; M25.551 Pain in right hip; I69.398 Other sequelae of cerebral infarction; R20.0 Anesthesia of skin; F17.210 Nicotine dependence, cigarettes, uncomplicated; Z95.820 Peripheral vascular angioplasty status with implants and grafts
CPT/HCPCS: 36415; 70450; 70496; 70498; 70553; 80053; 80061; 80306; 82553; 84484; 85025; 85048; 90471; 90686; 90732; 93005; 93306; 93880; 99406; A9579; G0008; G0009; J1650

== ENCOUNTER 2018-09-10 15:29 | Outpatient (CLI) | payer OTHER ==
--- NOTE | 2018-09-10 16:25 | RAD ---
LEFT ANKLE TWO VIEWS: HISTORY: TRC. Left ankle pain. FINDINGS: There are postop changes and metallic hardware in the medial and lateral malleoli, in good position a nd alignment. No fracture, dislocation, or bony destruction is seen. Posterior and plantar calcanea l spurs are present. POS: [facility]
== END 2018-09-10 15:30 | disposition home or self-care (01) ==
LOC: BICRAD 15:29
PROVIDERS: ATTEND Internal Medicine
DX: Z02.71 Encounter for disability determination (principal)

== ENCOUNTER 2018-10-06 23:03 | Emergency (ER) | payer OTHER, SELFPAY ==
[2018-10-07] MEDS ORDERED: Acetaminophen 325 MG TAB ONE (00:10)
[2018-10-07] MEDS ORDERED: diphenhydrAMINE 50 MG/ML VIAL ONE (00:23)
[2018-10-07] MEDS ORDERED: Metoclopramide HCl 10 MG/2 ML VIAL ONE (00:23)
[2018-10-07 00:30] LABS: #Basophils 0.1 thou/uL (0.0-0.2); #Eosinphils 0.8 thou/uL (0.0-0.7); #Lymphocytes 5.5 thou/uL (1.20-3.40); #Monocytes 1.2 thou/uL (0.11-0.59); #Neutrophils 7.3 thou/uL (1.40-6.50); %Basophils 0.6 % (0.0-1.0); %Eosinophils 5.3 % (0.0-10.0); %Monocytes 7.8 % (0.0-10.0); %Neutrophils 49.3 % (42.0-75.0); Hemoglobin 14.5 g/dL (14.0-18.0); Mean Corpuscular HGB CONC 32.7 g/dL (32.0-36.0); Mean Corpuscular Hemoglobin 28.5 pg (27.0-31.0); Mean Corpuscular Volume 87.1 fL (78.0-98.0); Mean Platelet Volume 6.3 fL (7.4-10.4); Platelet Count 377 thou/uL (130-400); RBC Distribution Width 12.9 % (11.5-14.5); Red Blood Cell (RBC) Count 5.09 mill/uL (4.70-6.10); White Blood Cell (WBC) Count 14.8 thou/uL (4.8-10.8)
[2018-10-07 00:34] LABS: INR-International Normal Ratio 1.1; Prothrombin Time 14.5 SEC (12.0-14.7)
[2018-10-07 00:47] LABS: ALT (SGPT) 26 U/L (8-55); AST (SGOT) 18 U/L (5-34); Albumin 4.2 g/dL (3.5-5.0); Alkaline Phosphatase 79 U/L (40-150); Anion Gap 16 mmol/L (10-20); BUN (Urea Nitrogen) 17 mg/dL (8.4-25.7); Bilirubin, Total 0.7 mg/dL (0.2-1.2); Calc. Creatinine Clearance 0 mL/min (70-130); Calcium 9.8 mg/dL (7.8-10.44); Carbon Dioxide 21 mmol/L (22-29); Chloride 104 mmol/L (98-107); Estimated GFR-MDRD Greater than 90; Globulin 3.3 g/dL (2.4-3.5); Glucose 104 mg/dL (70-105); Potassium 3.8 mmol/L (3.5-5.1); Protein, Total 7.5 g/dL (6.0-8.3); Sodium 137 mmol/L (136-145)
--- NOTE | 2018-10-07 08:29 | CT ---
PRELIMINARY REPORT/[facility]/EMERGENCY AFTER HOURS PROCEDURE: EXAM: CT Head Without Contrast EXAM DATE/TIME: 10/07/2018 12:36 AM CLINICAL HISTORY: 53 years old, male; Pain; Headache; Patient HX: Patient reports pain in right eye and behind right ea r. Had a stroke in june and states the pain has been off and on since then. Worse today. States the pain is the same as it usually is, just worse today TECHNIQUE: Axial computed tomography images of the head/brain without contrast. COMPARISON: No relevant prior studies available. FINDINGS: Brain: Multifocal encephalomalacia/gliosis. Volume loss and chronic small vessel ischemic change. No brain edema. No intracranial hemorrhage. Ventricles: Normal. No ventriculomegaly. Bones/joints: Normal. No acute fracture. Sinuses: Normal as visualized. No acute sinusitis. Mastoid air cells: Normal as visualized. No mastoid effusion. Soft tissues: Normal. IMPRESSION: No acute brain findings. Thank you for allowing us to participate in the care of your patient. Dictated and Authenticated by: Mark Wayne MD 10/07/2018 12:47 AM Central Time ([place] & [place]) FINAL REPORT BY DR. HALL EMERGENCY AFTER HOURS STUDY CT BRAIN NONCONTRAST: DATE: 10/07/2018. TIME: 12:37 a.m. HISTORY: A 53-year-old male with headache. COMPARISON: CT of 07/27/2018. FINDINGS: No mass effect or midline shift. No acute intraaxial hemorrhage, obstructive hydrocephalus, extraaxi al fluid collection, or calvarial fracture. The previously demonstrated moderate-sized area of low attenuation, consistent with encephalomalacia and gliosis, in the right frontal suggs radiata and centrum semiovale, has become moderately more ex tensive now. Posterior to that, a smaller patchy region of lower attenuation consistent with encephalomalacia and gliosis in the centrum semiovale and extending to the cortex, is stable. No major disagreement with preliminary report by [facility]. IMPRESSION: 1. A moderate-sized region of low attenuation, probably gliosis, in the right frontal deep white mat ter, is more extensive than on 07/27/2018. It presumably represents a region of chronic ischemia/whit e matter infarction, but this is not certain. 2. A smaller such region in the right upper lateral parietal cortex and white matter is consistent w ith encephalomalacia and gliosis. 3. No mass effect or acute intracranial hemorrhage. 4. Recommend MRI of the brain with and without contrast, as a followup to the 07/28/2018 MRI. 5. No major disagreement with the preliminary report by [facility]. NELSON Ferguson POS: [facility]
--- NOTE | 2018-10-09 14:04 | EKG ---
Test Reason : Blood Pressure : / mmHG Vent. Rate : 082 BPM Atrial Rate : 082 BPM P-R Int : 178 ms QRS Dur : 078 ms QT Int : 368 ms P-R-T Axes : 057 038 053 degrees QTc Int : 429 ms Normal sinus rhythm Normal ECG Confirmed by CHRISTIANO BAL DO ([id number]), editorial specialist SATYA ABAD ([id number]) on 10/09/2018 2:04:16 PM Referred By: Confirmed By:CHRISTIANO BAL DO
== END 2018-10-07 01:55 ==
LOC: ERS 23:03
DX: R51 Headache (principal); I10 Essential (primary) hypertension; Z86.73 Personal history of transient ischemic attack (TIA), and cerebral infarction without residual deficits; F17.210 Nicotine dependence, cigarettes, uncomplicated
CPT/HCPCS: 36415; 70450; 80053; 83880; 84484; 85025; 85610; 93005; 96365; 96375; J1200; J2765

== ENCOUNTER 2018-10-12 11:14 | Emergency (ER) | payer SELFPAY ==
[2018-10-12] MEDS ORDERED: Ketorolac Tromethamine 30 MG/ML VIAL ONE (14:26)
[2018-10-12] MEDS ORDERED: Dexamethasone 4 mg/ml Vial ONE ×2 (14:26→14:28)
[2018-10-12] MEDS ORDERED: Metoclopramide HCl 10 MG/2 ML VIAL ONE (14:26)
== END 2018-10-12 15:20 | disposition home or self-care (01) ==
LOC: ERS 11:14
DX: R51 Headache (principal); I73.9 Peripheral vascular disease, unspecified; I10 Essential (primary) hypertension; F17.210 Nicotine dependence, cigarettes, uncomplicated; Z79.899 Other long term (current) drug therapy; Z86.73 Personal history of transient ischemic attack (TIA), and cerebral infarction without residual deficits
CPT/HCPCS: 96361; 96374; 96375; J1100; J1885; J2765

== ENCOUNTER 2019-04-27 11:15 | Inpatient (IN) | payer MEDICAID, OTHER ==
[2019-04-27 11:52] LABS: #Basophils 0.1 thou/uL (0.0-0.2); #Eosinphils 1.8 thou/uL (0.0-0.7); #Monocytes 0.9 thou/uL (0.11-0.59); #Neutrophils 8.7 thou/uL (1.40-6.50); %Basophils 0.6 % (0.0-1.0); %Eosinophils 11.8 % (0.0-10.0); %Lymphocytes 25.7 % (21.0-51.0); %Monocytes 5.7 % (0.0-10.0); %Neutrophils 56.2 % (42.0-75.0); Hemoglobin 14.7 g/dL (14.0-18.0); Mean Corpuscular HGB CONC 33.7 g/dL (32.0-36.0); Mean Corpuscular Hemoglobin 29.8 pg (27.0-31.0); Mean Corpuscular Volume 88.6 fL (78.0-98.0); Mean Platelet Volume 6.7 fL (7.4-10.4); Platelet Count 332 thou/uL (130-400); RBC Distribution Width 13.5 % (11.5-14.5); Red Blood Cell (RBC) Count 4.91 mill/uL (4.70-6.10); White Blood Cell (WBC) Count 15.5 thou/uL (4.8-10.8)
[2019-04-27 11:59] LABS: INR-International Normal Ratio 1.1; PTT 40.2 SEC (22.9-36.1)
[2019-04-27 12:12] LABS: ALT (SGPT) 11 U/L (8-55); AST (SGOT) 11 U/L (5-34); Albumin 4.3 g/dL (3.5-5.0); Alkaline Phosphatase 88 U/L (40-150); Anion Gap 12 mmol/L (10-20); BUN (Urea Nitrogen) 6 mg/dL (8.4-25.7); Bilirubin, Total 0.4 mg/dL (0.2-1.2); Calc. Creatinine Clearance 0 mL/min (70-130); Calcium 9.6 mg/dL (7.8-10.44); Carbon Dioxide 26 mmol/L (22-29); Chloride 103 mmol/L (98-107); Estimated GFR-MDRD Greater than 90; Globulin 3.2 g/dL (2.4-3.5); Glucose 102 mg/dL (70-105); Protein, Total 7.5 g/dL (6.0-8.3); Sodium 137 mmol/L (136-145)
--- NOTE | 2019-04-27 12:25 | CT ---
CT BRAIN NONCONTRAST: DATE: 04/27/2019 HISTORY: 53-year-old male with altered mental status and left hand numbness. History of prior strokes. Dysarth kj. COMPARISON: 10/07/2018 FINDINGS: There is no evidence of acute intra-axial or extra-axial hemorrhage. There is no midline shift or any other mass effect. There is no extra-axial fluid collection. There is no evidence of obstructive hydrocephalus. Calvarium is intact. Moderate sized patchy region of low attenuation consistent with e ncephalomalacia and gliosis involving right frontal deep cerebral white matter is again noted. There is a new finding of small region of low attenuation in the one of the right upper frontal gyri consistent with an infarction that occurred sometime after the previous CT. It is uncertain whether old, subacute, or acute. The small old cortical infarction at lateral upper aspect of right parietal cortex is again noted. Milder patchy regions of low attenuation in the contralateral left cerebral deep white matter are again noted. IMPRESSION: 1. No acute intracranial hemorrhage or mass effect. 2. Small right upper frontal cortical infarction of indeterminate age, which occurred sometime after the previous CT of 10/07/2018. 3. Old right frontal deep white matter moderate size infarction. 4. Old small right parietal lobe cortical infarction.
[2019-04-27] MEDS ORDERED: ISOVUE-370 76%-LOCM 1 ML ONE (12:32)
[2019-04-27] MEDS ORDERED: Gadobenate Dimeglumine 529 MG/1 ML (20ML VIAL) ONE (12:34)
--- NOTE | 2019-04-27 12:39 | RAD ---
RADIOGRAPH CHEST 1 VIEW: DATE: 04/27/2019 HISTORY: 53-year-old male with chest pain FINDINGS: There are no airspace densities, pulmonary edema, pneumothorax, or cardiomegaly. The lateral costophr enic angles are sharp. There is a vertically oriented linear density overlying the lateral aspect of the right mid-lower rib cage. It is uncertain whether this is a chest tube, or a catheter overlyin g skin of the patient. IMPRESSION: No definite acute cardiopulmonary findings.
[2019-04-27] MEDS ORDERED: Aspirin Chewable 81 MG TAB ONE (12:40)
[2019-04-27 12:46] LABS: Amphetamine Not Detected (NotDetected); Barbiturates Screen Not Detected (NotDetected); Benzodiazepine Screen Not Detected (NotDetected); Cocaine Metabolite Screen Not Detected (NotDetected); Medtox Control Line Valid? VALID (VALID); Medtox Reader # READER 4; Methadone Not Detected (NotDetected); Methamphetamine Not Detected (NotDetected); Opiate Screen Detected (NotDetected); Oxycodone Screen Not Detected (NotDetected); Phencyclidine (PCP) Not Detected (NotDetected); THC/Cannabinoid Screen Detected (NotDetected); Tricyclic Screen Not Detected (NotDetected)
--- NOTE | 2019-04-27 14:56 | PDOC.FM ---
- Subjective Subjective: 53 yo male with history of HTN, HLD, and previous CVA presents to the ED today with a complaint of left hand numbness/weakness. He stated that 7/2 he woke up with these sx, thinking he slept on it wrong he did nothing about it. Today his girlfriend felt like his speech was more slurred than his baseline and he should be evaluated due to the possibility of a stroke. Head CT in the ED was significant for two old infarcts and one new area of cortical infarct in the right frontal lobe of indeterminate age, negative for intracranial bleeds. Pt denied any heart disease history or current cardiac symptoms. Pt states he has a history of CVA x2, most recently in Jun 2017. At which time the patient was told he had occlusion of his carotids but never had any interventions due to lack of insurance at the time. Deficits from previous strokes include right eye vision loss, right sided facial droop, and abnormal gait. Pt states he takes BP and cholesterol meds as well as aspirin. - Objective MAR Reviewed: Yes Result Diagrams: 04/27/19 11:43 04/27/19 11:37 EKG Reviewed by me: Yes Radiology Reviewed by me: Yes Radiology: CT Brin: small right upper frontal cortical infarct of indeterminate age, new since 10/07/18. Old rt frontal deep white matter infarct of moderate size. Old small right parietal cortical infarct.
--- NOTE | 2019-04-27 15:02 | PDOC.FPRHP ---
- History of Present Illness Chief Complaint: Left hand weakness/numbness History of Present Illness: 53 yo male with history of HTN, HLD, and previous CVA presents to the ED today with a complaint of left hand numbness/weakness. He stated that 7/2 he woke up with these sx, thinking he slept on it wrong he did nothing about it. Today his girlfriend felt like his speech was more slurred than his baseline and he should be evaluated due to the possibility of a stroke. Head CT in the ED was significant for two old infarcts and one new area of cortical infarct in the right frontal lobe of indeterminate age, negative for intracranial bleeds. Pt denied any heart disease history or current cardiac symptoms. Pt states he has a history of CVA x2, most recently in Jun 2017. At which time the patient was told he had occlusion of his carotids but never had any interventions due to lack of insurance at the time. Deficits from previous strokes include right eye vision loss, right sided facial droop, and abnormal gait. Pt states he takes BP and cholesterol meds as well as aspirin. ED Course: EKG normal, CT brain significant for new infarct. WBC of 15.5, negative troponins. Pt received aspirin 324mg. NIHSS score of 3. - Allergies/Adverse Reactions Allergies Allergy/AdvReac Type Severity Reaction Status Date / Time No Known Allergies Allergy Verified 07/27/18 17:18 - Home Medications Medication Instructions Recorded Confirmed Type Atorvastatin Calcium [Lipitor] 40 mg PO HS 07/27/18 04/27/19 History Aspirin [Ecotrin Regular Strength] 325 mg PO DAILY #30 tab 07/29/18 04/27/19 Rx Hydrochlorothiazide 12.5 mg PO BID #60 tab 07/29/18 04/27/19 Rx - History PMHx: HTN, HLD, PAD, CVA x2 PSHx: Bilateral femoral artery stents, left ankle ORIF FHx: Sisters: HTN Social: Smokes 1/2 ppd, occasional alcohol use, disabled, has a girlfriend - Review of Systems General: denies: fever/chills, fatigue Eyes: denies: eye pain, vision changes (baseline right eye blindness) Respiratory: denies: shortness of breath Cardiovascular: denies: chest pain, palpitation Gastrointestinal: denies: nausea, vomiting, abdominal pain Genitourinary: denies: incontinence Musculoskeletal: denies: pain, tenderness Neurological: reports: numbness (left hand), weakness (left arm and hand), other (increased slurred speech from baseline, baseline right facial weakness/ numbness) - Vital signs BP: 127/95 HR: 82 RR: 14 Tmax: 98.1 Pox: 97% on RA Wt: 67.5kg - Physical Exam Constitutional: NAD, awake, alert and oriented, well developed HEENT: normocephalic and atraumatic, grossly normal hearing Neck: supple, FROM Heart: RRR, normal S1/S2, pulses present Lungs: CTAB, no respiratory distress Abdomen: soft, non-tender, bowel sounds present Musculoskeletal: normal structure, normal tone -Neurological: Left hand weakness/numbness, 1/5 strength with all movements 3/5 left arm flexion 3/5 left arm abduction 3/5 left shoulder elevation 4/5 bilateral foot plantar flexion 5/5 head rotation in both directions Speech is slurred Right sided facial numbness Right eye vision loss Decreased ability to puff cheeks bilaterally EOM intact No change in mentation Skin: no rash/lesions Psychiatric: normal mood and affect, good judgment and insight, intact recent and remote memory FMR H&P: Results - Labs Result Diagrams: 04/27/19 11:43 04/27/19 11:37 Lab results: WBC 15.5 thou/uL (4.8-10.8) H 04/27/19 11:43 Hgb 14.7 g/dL (14.0-18.0) 04/27/19 11:43 Hct 43.5 % (42.0-52.0) 04/27/19 11:43 MCV 88.6 fL (78.0-98.0) 04/27/19 11:43 Plt Count 332 thou/uL (130-400) 04/27/19 11:43 Neutrophils % 56.2 % (42.0-75.0) 04/27/19 11:43 Sodium 137 mmol/L (136-145) 04/27/19 11:37 Potassium 4.0 mmol/L (3.5-5.1) 04/27/19 11:37 Chloride 103 mmol/L (98-107) 04/27/19 11:37 Carbon Dioxide 26 mmol/L (22-29) 04/27/19 11:37 BUN 6 mg/dL (8.4-25.7) L 04/27/19 11:37 Creatinine 0.86 mg/dL (0.7-1.3) 04/27/19 11:37 Glucose 102 mg/dL (70-105) 04/27/19 11:37 Calcium 9.6 mg/dL (7.8-10.44) 04/27/19 11:37 Total Bilirubin 0.4 mg/dL (0.2-1.2) 04/27/19 11:37 AST 11 U/L (5-34) 04/27/19 11:37 ALT 11 U/L (8-55) 04/27/19 11:37 Alkaline Phosphatase 88 U/L (40-150) 04/27/19 11:37 Serum Total Protein 7.5 g/dL (6.0-8.3) 04/27/19 11:37 Albumin 4.3 g/dL (3.5-5.0) 04/27/19 11:37 - EKG Interpretation EK04/27/19 @ 11:40 - NSR 85bpm, no ST or T wave changes - Radiology Interpretation CT scan - head Status: report reviewed by me (Small right upper frontal cortical infarct of indeterminate age, new since 10/07/18 Old right frontal deep white matter infarct of moderate size Old small right parietal cortical infarct) Chest x-ray Status: report reviewed by me (No definite cardiopulmonary process identified) FMR H&P: A/P - Problem List (1) CVA (cerebral vascular accident) Current Visit: Yes Status: Acute Code(s): I63.9 - CEREBRAL INFARCTION, UNSPECIFIED Qualifiers: Laterality of affected vessel: right (2) Carotid stenosis, bilateral Current Visit: Yes Status: Chronic Code(s): I65.23 - OCCLUSION AND STENOSIS OF BILATERAL CAROTID ARTERIES (3) Leukocytosis Current Visit: Yes Status: Acute Code(s): D72.829 - ELEVATED WHITE BLOOD CELL COUNT, UNSPECIFIED (4) HTN (hypertension) Current Visit: No Status: Chronic Code(s): I10 - ESSENTIAL (PRIMARY) HYPERTENSION Qualifiers: Hypertension type: essential hypertension Qualified Code(s): I10 - Essential (primary) hypertension (5) History of CVA (cerebrovascular accident) Current Visit: No Status: Chronic Code(s): Z86.73 - PRSNL HX OF TIA (TIA), AND CEREB INFRC W/O RESID DEFICITS (6) Peripheral artery disease Current Visit: No Status: Chronic Code(s): I73.9 - PERIPHERAL VASCULAR DISEASE, UNSPECIFIED - Plan Cerebrovascular accident Hx of CVA x2 with chronic right sided deficits. Hx of bilateral internal carotid occlusion. New onset left sided upper extremity weakness. ED CT brain showed new area of infarct. -Admit to stroke floor -Initiate DAPT: aspirin and plavix -PT/OT/Speech consult -NPO, bedside dysphagia screening order, advance as tolerated -MRI and CTA head and neck ordered -Neuro check q4hr Carotid stenosis CTA 07/28/18 demonstrated bilateral internal carotid stenosis -CTA head and neck ordered -Consult CV surgery pending results Hypertension -BP on admission is controlled -Hold home meds to allow permissive HTN at this time Hyperlipidemia Previously on atorvastatin 40mg -Started on rosuvastatin 40mg and CoQ10 100mg daily to optimize therapy Leukocytosis -Likely 2/2 to stress response or heme-concentration -No signs of infection or source -Will trend CBC and volume status VTE prophylaxis: enoxaprin 40mg daily Code Status: Full Code Disposition/LOS: Dispo: Stroke Floor LOS is expected to be >48hr FMR H&P: Upper Level - Pertinent history 53 yo M with acute onset left hand and UE weakness as well as left facial droop that started 2 days [employer]. He also reports some sensation changes involving lt hand. Pt has history of HTN, HLD, severe PAD and known 100% occlusion of b/l internal carotids as demonstrated on previous CT scan. - Pertinent findings ROS: See above, agree PE: Gen: NAD HEENT: Rt cataract, left pupil RL w/ a, EOMI, NCAT CV: RRR No MRG Respiratory: CTA b/l no w/r/r Abd: Soft NTND bsx4 Neuro: Left UE weakness 2-3/5 strength of arm with 0-1 strength in left hand. Sensation diminished in left hand. Left facial droop. Speech is slurred but easily understood. - Plan Date/Time: 04/27/19 0398 IRoverto DO, have evaluated this patient and agree with findings/ plan as outlined by media relations intern resident. Pertinent changes/additions are listed here. 1) CVA: - embolic likely unstable plaque from known blockage - will admit to stroke obs. Repeat MRI and CTA heada and neck to see if blockages have worsened - CT showed new infarct rt frontal - will initiate dual anti-platelet - consider CV surg consult 2) HTN: Currently stable - hydralazine PRN 3) HLD: - cont HI statin 4) Elevated WBC - likely stress repsonse, will trend - no evidence of infection Dispo: stable. Admit to stroke. Pt has severe and known cvd. Will attempt to maximize medical therapy with dual antiplatelt therapy and consult case management for cont medical therapy after DC. Do not suspect arrythmia. Consider CV surg consult.
[2019-04-27] MEDS ORDERED: hydrALAZINE 20 MG/ML VIAL SLOW IVP PRN (16:07)
[2019-04-27] MEDS ORDERED: Nicotine 14 MG PATCH TD PRN (16:07)
[2019-04-27] MEDS ORDERED: Ondansetron ODT 4 MG TAB PO PRN (16:07)
[2019-04-27] MEDS ORDERED: Ondansetron PF 4 MG/2 ML Vial IVP PRN (16:07)
[2019-04-27] MEDS ORDERED: Senokot S 8.6-50 MG TAB PO PRN (16:07)
[2019-04-27 16:34] VITALS: BMI 24.7
--- NOTE | 2019-04-27 18:11 | MRI ---
Exam: Brain MRI with and without contrast HISTORY: New onset stroke. COMPARISON: 07/28/2018 FINDINGS: Gradient echo sequence: No hemorrhage Calvarium: Appropriate T1 marrow signal intensity Midline brain parenchyma: Unremarkable Cerebrum:Stable malacic and gliotic changes involving the right parietal lobe. There are confluent T2 and FLAIR white matter hyperintensities due to chronic small vessel ischemic changes. There are cortically-based T2 and FLAIR hyperintensities along the right frontal and left frontal lobe. There i s associated restricted diffusion suggesting bilateral frontal lobe cortical infarcts. Additional restricted diffusion is not appreciated. Central arterial flow is maintained. Ventricles: No evidence of hydrocephalus. Sinuses and mastoid air cells: Mild paranasal sinus mucosal thickening. Diffusion: Bilateral frontal lobe cortical restricted diffusion suggesting embolic phenomenon. Uncert ain etiology. Postcontrast images: No pathologic enhancement of the brain parenchyma. IMPRESSION: 1Bilateral cortical infarcts involving the frontal lobes predominantly. Embolic phenomenon is favore d. Etiology is uncertain. Central process such as cardiac sources should be considered. Transcribed Date/Time: 04/27/2019 6:17 PM
--- NOTE | 2019-04-27 20:12 | HP ---
I have examined the patient. I have discussed the case with Dr. Tyrel Kiran and agreed with his assessment and plan. HISTORY OF PRESENT ILLNESS: Briefly, Mr. High is a pleasant, 53-year-old, black male patient with a history of hypertension, hyperlipidemia, and previous stroke x2. He stated that beginning Monday and Monday, he noticed left hand weakness as well as some drooping on the left side of his face. He did not seek medical attention immediately because he thought the symptoms would "go away". They did not go away, so he has presented to our ER with these complaints since Monday. He denies any headache. On exam, he is awake, alert, and in no acute distress. PHYSICAL EXAMINATION: VITAL SIGNS: His blood pressure is 127/95, his pulse rate is 82, respirations are 14. He is afebrile. His room air O2 saturation is 97%. GENERAL: Again, he is pleasant, awake, and alert with an obvious left-sided facial droop and weakness in his left hand. EAR, NOSE, AND THROAT: Other than the aforementioned facial droop, normal. NECK: Supple. CARDIAC: Heart rhythm is regular. No gallop or murmur noted. LUNGS: Clear without rales or wheezes. ABDOMEN: Flat and soft without guarding, rebound, or rigidity. NEUROLOGIC: Left facial droop as well as left hand weakness. Can move both lower extremities without difficulty. LABORATORY DATA: White count is 15,500, hemoglobin 14.7, hematocrit 43.5. Chemistry; sodium 137, potassium 4, chloride 103, bicarb 26, BUN 6, creatinine 0.86. Liver enzymes are normal. Toxicology of the urine does reveal opiates and cannabinoids. INR is 1.1. Brain CT shows no acute intracranial hemorrhage or mass effect. There is a small right upper frontal cortical infarction of indeterminate age, which did occur after previous CT of October 07, 2018. There was an old right frontal deep white matter moderate-sized infarction and an old small right parietal lobe cortical infarction. Chest x-ray shows no definite acute cardiopulmonary findings. ASSESSMENT: Stroke. PLAN: Admit for observation and monitor blood pressure. Begin physical therapy. Begin high-dose statins and aspirin. Job ID: [id number]
--- NOTE | 2019-04-27 20:54 | CT ---
CT ANGIOGRAM OF BRAIN WITH AND WITHOUT CONTRAST: CT ANGIOGRAM NECK WITH CONTRAST: DATE: 04/27/2019 HISTORY: 53-year-old male with acute bilateral small cerebral infarctions, multiple. TECHNIQUE: Noncontrast brain CT performed. After IV contrast injection, arterial bolus chasing technique scan performed from aortopulmonic windo w to vertex of head. Coronal and sagittal 3-D MIP reconstructions. COMPARISON: 07/28/2018 FINDINGS: Chronic complete occlusions of the bilateral internal carotid arteries at their origins. Occlusion of origin of right external carotid artery, but there is reconstitution of their branches. Contrast opacification of bilaterally very small caliber distal carotid siphons, presumably supplied via bilateral ophthalmic arteries. Contrast opacification of bilaterally small caliber supraclinoid carotids, A1 segments of bilateral a nterior cerebral arteries, and M1 segments of bilateral middle cerebral arteries. The left anterior and middle cerebral arteries are smaller in caliber than the right. Difficult to evaluate branches of the MCAs because of adjacent venous contamination. No occlusion of M1 segments of MCAs. Intracranial vertebral arteries, basilar artery, bilateral posterior cerebral arteries, and bilateral superior cerebellar arteries, are normal in caliber, at least proximally. Borderline origin of left common carotid artery from the brachiocephalic artery. Slightly diffusely small caliber of right common carotid artery. No high-grade stenosis or occlusion of bilateral common carotid arteries. No high-grade stenosis of left subclavian artery. Brachiocephalic artery is normal caliber. Right subclavian artery is mostly obscured by streak artifa ct from adjacent contrast bolus in right subclavian vein. Bilateral vertebral arteries are almost codominant, right side slightly larger than left. There is no stenosis of right vertebral. Mild to moderate stenosis at origin of left vertebral. No posterior communicating artery is visualized Other than the medial acute small cerebral infarctions, there has been no significant interval change . IMPRESSION: 1) chronically occluded bilateral internal carotid arteries. 2) reconstitution of diffusely small caliber supraclinoid carotids and the M1 segments of the bilater al middle cerebral arteries (which are also diffusely small in caliber), probably through the external carotid arteries via the ophthalmic arteries. 3) no major interval change in appearance of the major arteries..
[2019-04-27] MEDS: Acetaminophen 325 MG TAB PO PRN (21:50)
[2019-04-27] MEDS: Rosuvastatin 20 MG TAB PO SCH (21:50)
--- NOTE | 2019-04-28 05:35 | PDOC.FM ---
- Subjective Subjective: Mr. High remains with R hand motor deficits. He states he has not been taking his asp or htn medications due to missing an appt at the [facility]. - Objective Vital Signs & Weight: Vital Signs (12 hours) Temp Pulse Resp BP Pulse Ox 04/28/19 04:00 97.3 F L 70 16 129/82 98 04/28/19 00:00 97.3 F L 75 16 129/72 100 04/27/19 20:15 100 04/27/19 20:00 97.6 F 84 16 148/84 H 96 Weight Weight 67.54 kg Result Diagrams: 04/28/19 05:23 04/28/19 05:23 Radiology Reviewed by me: Yes Radiology: MRI Brain revealed bilateral cortical infarct involving lobe. CT Brain revealed similar findings. CT [place] revealed occluded interal carotids w restitution of diffuse small caliber suprachoroid and M1 seg of bilateral middle cerebral arteries. Dx/Plan (1) Dyslipidemia Code(s): E78.5 - HYPERLIPIDEMIA, UNSPECIFIED Status: Acute (2) CVA (cerebral vascular accident) Code(s): I63.9 - CEREBRAL INFARCTION, UNSPECIFIED Status: Acute Qualifiers: Laterality of affected vessel: right (3) Leukocytosis Code(s): D72.829 - ELEVATED WHITE BLOOD CELL COUNT, UNSPECIFIED Status: Acute (4) Carotid stenosis, bilateral Code(s): I65.23 - OCCLUSION AND STENOSIS OF BILATERAL CAROTID ARTERIES Status : Chronic (5) HTN (hypertension) Code(s): I10 - ESSENTIAL (PRIMARY) HYPERTENSION Status: Chronic Qualifiers: Hypertension type: essential hypertension Qualified Code(s): I10 - Essential (primary) hypertension (6) History of CVA (cerebrovascular accident) Code(s): Z86.73 - PRSNL HX OF TIA (TIA), AND CEREB INFRC W/O RESID DEFICITS Status: Chronic - Plan Plan: 1) CVA: Hx of CVA x 2 with R vision and R sided droop deficits. Woke with new onset symptoms > 48 hrs. Pt ran out of home BP, Asp meds due to not following up for appt at [facility] MRI Brain revealed bilateral cortical infarct involving lobe. CT Brain revealed similar findings. CT [place] revealed occluded interal carotids w restitution of diffuse small caliber suprachoroid and M1 seg of bilateral middle cerebral arteries. - embolic likely unstable plaque from known blockage - admit to stroke obs. - PT/OT, Neuro, Case Management consults; wendi rec's - continue dual anti-platelet - consider CV surg consult 2) HTN: Currently stable - hydralazine PRN - BP WNL; cont holding HCTZ 3) HLD: Tri 98, Chol 171, LDL 107, HDL 44 - cont HI statin 4) Elevated WBC - likely stress repsonse, will trend - no evidence of infection Dispo: stable. Admit to stroke. Pt has severe and known cvd. Will attempt to maximize medical therapy with dual antiplatelt therapy and consult case management for cont medical therapy after DC. Waiting for PT/OT and neuro recs. Do not suspect arrythmia. Consider CV surg consult.
[2019-04-28 05:40] LABS: #Basophils 0.1 thou/uL (0.0-0.2); #Eosinphils 2.1 thou/uL (0.0-0.7); #Lymphocytes 4.5 thou/uL (1.20-3.40); #Monocytes 1.3 thou/uL (0.11-0.59); #Neutrophils 9.8 thou/uL (1.40-6.50); %Basophils 0.5 % (0.0-1.0); %Eosinophils 11.9 % (0.0-10.0); %Lymphocytes 25.1 % (21.0-51.0); %Monocytes 7.1 % (0.0-10.0); %Neutrophils 55.4 % (42.0-75.0); Hemoglobin 14.2 g/dL (14.0-18.0); Mean Corpuscular Hemoglobin 29.3 pg (27.0-31.0); Mean Corpuscular Volume 88.7 fL (78.0-98.0); Mean Platelet Volume 6.6 fL (7.4-10.4); Platelet Count 339 thou/uL (130-400); RBC Distribution Width 13.5 % (11.5-14.5); Red Blood Cell (RBC) Count 4.86 mill/uL (4.70-6.10); White Blood Cell (WBC) Count 17.7 thou/uL (4.8-10.8)
[2019-04-28 05:59] LABS: Anion Gap 12 mmol/L (10-20); BUN (Urea Nitrogen) 9 mg/dL (8.4-25.7); Calc. Creatinine Clearance 101 mL/min (70-130); Calcium 9.5 mg/dL (7.8-10.44); Carbon Dioxide 23 mmol/L (22-29); Cardiac Risk 3.9 (Less than 4.5); Chloride 106 mmol/L (98-107); Cholesterol 171 mg/dl (< 200 Desired); Estimated GFR-MDRD Greater than 90; Glucose 98 mg/dL (70-105); HDL Cholesterol 44 mg/dL (>60 Neg Risk); LDL Cholesterol, Calculated 107 mg/dL; Sodium 137 mmol/L (136-145); Triglycerides 98 mg/dL (Less than 150)
[2019-04-28] MEDS: Aspirin 325 mg Enteric Coated Tablet PO SCH (08:53)
[2019-04-28] MEDS: Enoxaparin Sodium 40 MG/0.4 ML SYRINGE SC SCH (08:53)
[2019-04-28] MEDS: Clopidogrel Bisulfate 75 MG TAB PO SCH (08:53)
[2019-04-28] MEDS: Ubidecarenone 50 MG CAP PO SCH (08:53)
--- NOTE | 2019-04-28 12:13 | CON ---
DATE OF CONSULTATION: 04/28/2019 CHIEF COMPLAINT: Weakness on the left side. HISTORY OF PRESENT ILLNESS: The patient is a 53-year-old man, who complains that he felt lightheaded and developed left-sided weakness 2 to 3 days ago. He also had left-sided numbness in the left hand. He did not note he needed to come to the hospital early. He had no chest pain or headache. He was subsequently told by his family to come to the hospital and he called EMS and came here. He does not have any vision problems or memory issue. The patient's girlfriend noted he had dysarthria and told him to come to the hospital. PREVIOUS MEDICAL HISTORY: He takes oral medications for hypertension. In June 2018, he had a CVA and lost vision in the right eye. No weakness. He has peripheral vascular disease. PREVIOUS SURGICAL HISTORY: He had bilateral leg arterial stem cell implantation in 2012, on the left side. FAMILY HISTORY: He has one brother, four sisters, two have hypertension. No CVA in the family. Mother in her 80s. She had liver problems from alcohol. Father in his 80s. He also has poor health care, did not take care of himself. REVIEW OF SYSTEMS: PULMONARY: Negative for shortness of breath or cough. CARDIOVASCULAR: Negative for chest pain or palpitations. GI: Negative for diarrhea, vomiting, or nausea. GENITOURINARY: Negative for any bladder problems. NEUROLOGIC: Positive for weakness and numbness on the left side. DERMATOLOGIC: Negative for any rash. LABORATORY WORKUP: White count 17.7, hemoglobin 14.2, hematocrit 43.1, platelet count 339. Chemistry; sodium 137, potassium 4, chloride 106, bicarb 23, BUN 9, creatinine 0.82, glucose 98. Triglycerides 98, cholesterol 171, LDL 107, HDL 44, heart disease risk ratio 3.9, and TSH 0.72. His MRI of the brain was completed and MRI showed bifrontal cortical infarct, embolic phenomena is favored. Etiology is uncertain. Potential process that for cardiac source should be considered, and his carotid and CT angiogram of the head and neck showed chronic occlusion of bilateral internal carotid arteries and he has reconstitution to treat diffusely small caliber, supraclinoid carotids, and M1 segments of bilateral middle cerebral arteries with ECAs and ophthalmic artery. PHYSICAL EXAMINATION: VITAL SIGNS: Temperature 97.8, pulse 84, respiratory rate 20, O2 sats 93%, and blood pressure 127/77. GENERAL APPEARANCE: Well-built, well-nourished man, who is comfortable in bed. CHEST: Clear vesicular breathing. CARDIOVASCULAR: S1 and S2 heard. No murmurs. ABDOMEN: Soft. NEUROLOGIC: Higher intellectual functions, normal orientation to time, place, and person. Appropriate conversation. Cranial nerves 2 through 12, normal extraocular movements. He had right eye corneal haziness, no light perception. Left eye was normal at 2 mm. Pupils reactive to light. Sensation of face was decreased on the right side. He has mild dysarthria and left facial droop. Tongue midline. No atrophy noted. Normal elevation of palate. Motor, bulk normal, tone normal. Strength 5/5 on the right side. Left strength is 4/5. In the proximal upper extremity, distal wrist extensor 0/5, wrist flexor 2/5, finger extension 0/5, finger flexors were 2/5. Left lower extremity strength was also 4/5. Muscle groups tested are iliopsoas, hamstrings, quadriceps, ankle dorsiflexion, plantar flexion, deltoid, biceps, triceps, wrist extension and flexion, finger extension and flexion bilaterally. Deep tendon reflexes 2+ throughout. Cerebellar, normal [id number], [id number] and sensory normal in the extremities. IMPRESSION: The patient is a 53-year-old man with bifrontal cortical infarct and he has left-sided weakness, mostly in the arms and has a wrist drop appearance of the left upper extremity with predominant distal weakness and relatively preserved proximal muscle strength at 4/5. Left lower extremity is also weak. His clinical diagnosis is most consistent with an acute cerebrovascular accident, likely cardioembolic source needs to be explored. RECOMMENDATIONS: Please complete echocardiogram. Please consult Vascular Surgery. Continue anti-platelet agents along with statin and please call Neurology if you have any further questions. Job ID: [id number]
--- NOTE | 2019-04-28 12:32 | PRG ---
DATE OF SERVICE: 04/28/2019 Mr. High remained stable, but still has left-sided hand weakness. He was seen in consultation by Dr. Yenifer Huffman, and we appreciate his input. His white count has also risen to 17,700. He, however, is afebrile and offers no complaints. We will of course monitor this closely. We will also ask Cardiovascular to see him regarding his significant carotid vessel disease, although, it seems in the past, they have elected not to do further surgery as there was bilateral 100% occlusions. We await their input. We will proceed with our evaluation with a CTA of the head and neck. Clinically, Mr. High remains stable. Job ID: [id number]
[2019-04-28] MEDS: Acetaminophen 325 MG TAB PO PRN ×2 (15:57→21:41)
--- NOTE | 2019-04-28 17:57 | CON ---
DATE OF CONSULTATION: HISTORY OF PRESENT ILLNESS: Mr. High is a 53-year-old gentleman, who presented to the emergency department with left hand numbness and weakness. He has a previous cerebrovascular accident when he was evaluated in July 2018. He was found to have occluded internal carotid arteries bilaterally. The history and physical insinuate that he did not have interventions on his occluded carotids due to lack of funding. There is no available intervention for carotid occlusion, so his funding status had nothing to do with our ability to treat him appropriately. PAST MEDICAL HISTORY: 1. Cerebrovascular accident. 2. Hypertension. 3. Dyslipidemia. 4. Peripheral vascular disease. PAST SURGICAL HISTORY: 1. Bilateral SFA stents. 2. Left ankle ORIF. HOME MEDICATIONS: 1. Aspirin 325 mg daily. 2. Lipitor 40 mg at bedtime. 3. HCTZ 12.5 mg b.i.d. ALLERGIES: NONE. SOCIAL HISTORY: He continues to smoke tobacco. He uses occasional alcohol. PHYSICAL EXAMINATION: VITAL SIGNS: Height is 5 feet and 5 inches, weight is 148 pounds, BSA is 1.76. NECK: Supple without bruit. CHEST: Clear bilaterally. HEART: Rhythm is regular. ABDOMEN: Soft and nontender. EXTREMITIES: There is no edema. ASSESSMENT AND PLAN: This patient has occluded internal carotid arteries bilaterally. They do not reconstitute until they are supraclinoid in the skull. There is no available treatment for this anatomic finding. I would recommend continuing his current medical regimen. Job ID: [id number]
[2019-04-28] MEDS: Hydrochlorothiazide 25 MG TAB PO SCH (21:40)
[2019-04-28] MEDS: Rosuvastatin 20 MG TAB PO SCH (21:40)
--- NOTE | 2019-04-29 05:08 | PDOC.FM ---
- Subjective Subjective: Pt did well overnight. No concerns or complaints. No new focal neurologic deficits. Still endorses L hand numbness and weakness, unimproved from admission. Denies any CP, SOB, fever, chills, n/v, diarrhea or constipation. - Objective MAR Reviewed: Yes Vital Signs & Weight: Vital Signs (12 hours) Temp Pulse Resp BP Pulse Ox 04/29/19 04:00 97.4 F L 78 16 99/79 95 04/29/19 00:00 96 F L 80 16 132/89 96 04/28/19 20:15 97 04/28/19 20:00 97.4 F L 80 16 161/93 H 97 Weight Weight 67.54 kg I&O: 04/27/19 04/28/19 04/29/19 06:59 06:59 06:59 Intake Total 1000 Balance 1000 Result Diagrams: 04/29/19 07:50 04/29/19 07:50 EKG Reviewed by me: Yes (Tele showed normal sinus rhythm) Phys Exam - Physical Examination Constitutional: NAD Decreased vision in right eye. 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 Sensation intact. Psychiatric: normal affect, A&O x 3 Skin: no rash Dx/Plan (1) CVA (cerebral vascular accident) Code(s): I63.9 - CEREBRAL INFARCTION, UNSPECIFIED Status: Acute Qualifiers: Laterality of affected vessel: right (2) Dyslipidemia Code(s): E78.5 - HYPERLIPIDEMIA, UNSPECIFIED Status: Acute (3) Leukocytosis Code(s): D72.829 - ELEVATED WHITE BLOOD CELL COUNT, UNSPECIFIED Status: Acute (4) Dental abscess Code(s): K04.7 - PERIAPICAL ABSCESS WITHOUT SINUS Status: Acute (5) Carotid stenosis, bilateral Code(s): I65.23 - OCCLUSION AND STENOSIS OF BILATERAL CAROTID ARTERIES Status : Chronic (6) HTN (hypertension) Code(s): I10 - ESSENTIAL (PRIMARY) HYPERTENSION Status: Chronic Qualifiers: Hypertension type: essential hypertension Qualified Code(s): I10 - Essential (primary) hypertension - Plan Plan: 53yo AAM with h/o CVA x2 with residual R-sided weakness presents with new onset L-sided UE weakness found to have new bilateral cortical infarcts on MRI. 1) CVA with bilateral internal carotid stenosis -Hx of CVA x 2 with R vision and R sided facial droop residual deficits. Woke with new onset symptoms > 48 hrs, left-sided UE weakeness. Pt ran out of home BP, Asp meds due to being out of town. -MRI Brain revealed bilateral cortical infarct involving frontal lobe. CT Brain revealed similar findings. CT [place] [facility] [place] revealed occluded internal carotids w restitution of diffuse small caliber suprachoroid and M1 seg of bilateral middle cerebral arteries. - Radiology suggestive of embolic -likely unstable plaque from known blockage - PT/OT, Case Management consults - plans to follow up with [facility]; wendi rec's - Dr. Huffman (Neuro) consulted, recommend Echo + CV surg consult, and continue Dual antiplatelet therapy, appreciate recs. - Dr. Philip (CV surg) consulted, recommend current medical management, appreciate recs. - Cont on Tele - has been in normal sinus 2) HTN: Currently stable - allowed permissive HTN 48 hours. Restarted home HCTZ. BP stable. Will continue to monitor. 3) HLD: -Tri 98, Chol 171, LDL 107, HDL 44 - cont HI statin + CQ10 4) Leukocytosis - likely stress response, will trend, increased from 15-17 yesterday. Repeat this morning was down to 15. Continue to trend. - no s/s of current acute infection 5) Dental abscess - complaints of tooth pain overnight. Will start Augmentin. Dispo: stable. Pt has severe and known cvd. Will attempt to maximize medical therapy with dual antiplatelet therapy and consult case management for cont medical therapy after DC. Pending further workup and follow up outpatient with [facility]. Addendum - Attending - Attending Attestation Date/Time: 04/30/19 1026 I personally evaluated the patient and discussed the management with Dr. Gomez yesterday. I agree with the History, Examination, Assessment and Plan documented above with any addition or exceptions noted below.
[2019-04-29 08:09] LABS: Hemoglobin 14.7 g/dL (14.0-18.0); Mean Corpuscular HGB CONC 32.3 g/dL (32.0-36.0); Mean Corpuscular Hemoglobin 28.2 pg (27.0-31.0); Mean Corpuscular Volume 87.4 fL (78.0-98.0); Mean Platelet Volume 6.7 fL (7.4-10.4); Platelet Count 361 thou/uL (130-400); RBC Distribution Width 13.5 % (11.5-14.5)
[2019-04-29 08:19] LABS: Anion Gap 13 mmol/L (10-20); BUN (Urea Nitrogen) 12 mg/dL (8.4-25.7); Calc. Creatinine Clearance 97 mL/min (70-130); Carbon Dioxide 24 mmol/L (22-29); Chloride 104 mmol/L (98-107); Estimated GFR-MDRD Greater than 90; Glucose 100 mg/dL (70-105); Sodium 137 mmol/L (136-145)
[2019-04-29] MEDS ORDERED: Amoxicillin/Potassium Clav 875 MG TAB PO SCH (09:00)
[2019-04-29 09:07] LABS: Eosinophils 16 % (0-10); Lymphocytes 36 % (21-51); MDiff Complete? YES; Monocytes 7 % (0-10); Neutrophil 40 % (42-75); Platelet Morphology Comment Appears Adequate; RBC Morphology Normal
[2019-04-29] MEDS: Clopidogrel Bisulfate 75 MG TAB PO SCH (09:48)
[2019-04-29] MEDS: Enoxaparin Sodium 40 MG/0.4 ML SYRINGE SC SCH (09:48)
[2019-04-29] MEDS: Ubidecarenone 50 MG CAP PO SCH (09:48)
[2019-04-29] MEDS: Hydrochlorothiazide 25 MG TAB PO SCH (09:48)
[2019-04-29] MEDS: Aspirin 325 mg Enteric Coated Tablet PO SCH (09:49)
[2019-04-29 11:42] VITALS: BP 140/85; TEMP 98
--- NOTE | 2019-04-30 10:33 | DIS ---
DATE OF ADMISSION: 04/27/2019 DATE OF DISCHARGE: 04/29/2019 RESIDENT: Ruben Gomez MD ADMITTING ATTENDING: Dr. Nick Stroud DISCHARGE ATTENDING: Dr. Dirk Milan CONSULTS: 1. Dr. Yenifer Huffman, Neuro. 2. Dr. Lalo Philip, CV Surgery. PROCEDURES PERFORMED: 1. CT head and neck demonstrated chronic complete occlusions of the bilateral internal carotids at their origins as well as occlusion of the origin of the right external carotid. No major interval changes in appearance of the major arteries. 2. Head CT: No acute intracranial hemorrhage or mass effect, small right upper frontal cortical infarct of indeterminate age which occurred after previous CT on September 27, 2018. 3. Chest x-ray: No acute cardiopulmonary process. 4. Brain MRI demonstrated bilateral cortical infarcts involving the frontal lobes predominately. PRIMARY DIAGNOSES: Cerebrovascular accident, carotid stenosis. SECONDARY DIAGNOSES: Hypertension, hyperlipidemia, peripheral artery disease. DISCHARGE MEDICATIONS: 1. Crestor 40 mg p.o. at bedtime. 2. CoQ10 of 100 mg p.o. daily. 3. Plavix 75 mg p.o. daily. 4. Augmentin 875 p.o. b.i.d. x10 days. 5. Hydrochlorothiazide 12.5 mg p.o. b.i.d. 6. Aspirin 325 mg p.o. daily. DISCONTINUED MEDICATION: Lipitor 40 mg p.o. at bedtime. HISTORY OF PRESENT ILLNESS: Mr. High is a pleasant 53-year-old male with history of hypertension, hyperlipidemia, and previous CVA with residual right-sided facial droop and vision loss, who presents with new onset left hand numbness and weakness. He stated that on April 23, he woke up with these symptoms , but felt like he slept on it wrong and did nothing about it. A few days later, he then began to have a little bit more slurred speech per his girlfriend and he presented to the ED. In the ED, he had a head CT that showed 2 old infarcts and 1 new area of cortical infarct in the right frontal lobe with indeterminate age. The patient does admit that he ran out of medications about a week prior to presentation due to visiting family out of town. In the ED, his EKG was normal. His CT was unremarkable and troponins negative. The patient's symptoms remained stable throughout his admission stay. He was placed on telemetry that showed no acute arrhythmias. Neurology was consulted, who recommended dual antiplatelet therapy, therefore Plavix was added to his current regimen of aspirin. He was transitioned to high intensity statin with discontinuation of his Lipitor and starting of Crestor. CV Surgery was consulted, who determined that there was no surgical intervention at this time and recommended continued medical management. Blood pressure was well controlled on his home hydrochlorothiazide. On day of discharge, the patient was doing well, sitting up in bed, in no acute distress. He is eager to quit smoking and take his medications regularly . He states that he will follow up with [facility] as his primary care team Discharge plan was discussed with the patient. He voiced agreement and understanding of the above plan. DISPOSITION: Stable. DISCHARGE INSTRUCTIONS: 1. Location: Home. 2. Diet: Heart healthy. 3. Activity: As tolerated. 4. Followup: The patient will follow up with [facility] within the next week. Telephone number of the clinic and instructions to follow up was given to the patient. Job ID: [id number] [facility]
== END 2019-04-29 15:14 | disposition home or self-care (01) | DRG 66 ==
LOC: ERS 11:15 → 2SE 12:52
PROVIDERS: ADMIT Family Medicine; ATTEND Family Medicine
DX: I63.40 Cerebral infarction due to embolism of unspecified cerebral artery (principal); R29.703 NIHSS score 3; I10 Essential (primary) hypertension; E78.5 Hyperlipidemia, unspecified; I65.23 Occlusion and stenosis of bilateral carotid arteries; D72.829 Elevated white blood cell count, unspecified; I73.9 Peripheral vascular disease, unspecified; K04.7 Periapical abscess without sinus; R29.810 Facial weakness; Z91.19 Patient's noncompliance with other medical treatment and regimen; Z87.891 Personal history of nicotine dependence; Z79.82 Long term (current) use of aspirin; Z79.899 Other long term (current) drug therapy; I69.992 Facial weakness following unspecified cerebrovascular disease; I69.998 Other sequelae following unspecified cerebrovascular disease; H54.7 Unspecified visual loss
CPT/HCPCS: 36415; 70450; 70496; 70498; 70553; 71045; 80048; 80053; 80061; 80306; 84443; 84484; 85025; 85060; 85610; 85730; 93005; A9577; J1650; Q9966